=== PATIENT | female | born 1950 | race Caucasian/White ===

== ENCOUNTER 2018-07-18 13:40 | Outpatient (REF) | payer MEDICARE, OTHER, SELFPAY ==
[2018-07-18 20:44] LABS: Abs Immature Grans 0.01 k/cumm (0.0-0.09); Absolute Basophil Count 0.01 k/cumm (0.0-0.2); Absolute Eosinophil Count 0.04 k/cumm (0.0-0.7); Absolute Lymphocyte Count 0.97 k/cumm (1.2-3.4); Absolute Monocyte Count 0.66 k/cumm (0.11-0.7); Absolute Neutrophil Count 2.87 k/cumm (1.2-6.7); Basophils % 0.2; Eosinophils % 0.9; HCT 38.8 % (36.0-46.0); HGB 13.1 g/dL (12.0-15.5); Immature Grans % 0.2; Lymphocytes % 21.3; Mean Corp. HGB Concentration 33.8 g/dL (32.0-36.0); Mean Corpuscular Hemoglobin 33.9 pg (27.0-33.0); Mean Corpuscular Volume 100.5 fL (80-95); Mean Platelet Volume 10.1 fL (8.0-11.0); Monocytes % 14.5; Neutrophils % 62.9; Platelet Count 157 x1000/uL (130-400); RBC 3.86 m/cumm (4.00-5.20); RBC Distribution Width 12.7 % (11.7-14.6); White Blood Cell Count 4.56 k/cumm (4.4-10.8)
[2018-07-18 20:55] LABS: ALT 103 U/L (12-78); AST 126 U/L (15-37); Albumin 4.3 g/dL (3.4-5.0); Alkaline Phosphatase 71 U/L (46-116); Anion Gap 12.3 mmol/L (3-11); BUN 12 mg/dL (7-18); Bilirubin, Total 0.9 mg/dL (0.2-1.0); C-Reactive Protein 0.55 mg/dL (0.0-0.3); CO2 26.7 mmol/L (21.0-32.0); CREATININE 0.61 mg/dL (0.55-1.02); Calcium 9.9 mg/dL (8.5-10.1); Chloride 100 mmol/L (98-107); Glucose 117 mg/dL (70-100); Potassium 3.3 mmol/L (3.5-5.1); Sodium 139 mmol/L (136-145); Total Protein 7.4 g/dL (6.4-8.2)
[2018-07-19 13:17] LABS: Lipase 499 U/L (73-393)
[2018-07-20 13:12] LABS: GGT 96 U/L (5-55)
== END 2018-07-18 14:00 ==
LOC: NCHCN 13:40
PROVIDERS: PCP Family Medicine; Visit Provider Family Medicine
DX: R11.10 Vomiting, unspecified (principal); R13.10 Dysphagia, unspecified; R74.8 Abnormal levels of other serum enzymes
CPT/HCPCS: 80053; 83690; 82977; 85025; 86140

== ENCOUNTER 2018-08-09 03:39 | Outpatient (CLI) | payer MEDICARE, OTHER, SELFPAY ==
[2018-08-09] MEDS: Omnipaque 350 MG/ML 100 ML BTL IV (10:28)
[2018-08-09] MEDS: Breeza Beverage 473 ML BTL PO (10:32)
[2018-08-09] MEDS: Omnipaque 350 MG/ML 50 ML BTL PO (10:32)
--- NOTE | 2018-08-09 10:41 | DI.CT_ITS ---
SYMPTOMS/DIAGNOSIS: VOMITING, ACUTE DYSPHAGIA, R11.10, R13.10 CT OF THE CHEST, ABDOMEN AND PELVIS: The study was carried out with an intravenous injection of 100 cc's of Omnipaque 350 and oral ingestion of dilute contrast material. CHEST CT: The lungs are free of infiltrate. No mass is identified. There is a small pleural based calcification in the right upper lobe most likely representing an old healed granuloma. There is no pleural effusion. There is no hilar adenopathy. The heart is not enlarged. There is no evidence of pulmonary emboli. There are atherosclerotic changes involving the aorta without evidence of an aneurysm. ABDOMEN AND PELVIS CT: The with oral and intravenous contrast enhanced study reveals no abnormality involving the liver. The gallbladder is intact. There are no gallstones or ductal dilatation. The pancreas is normal. The spleen is normal. There are small nonobstructing calculi in the left kidney. The kidneys are otherwise unremarkable. The adrenals are normal. There is no evidence of bowel obstruction. There is nothing to suggest an acute appendix. Sigmoid diverticulosis is demonstrated and a few scattered diverticula are noted in the descending colon. There is no evidence of diverticulitis. The bladder is unremarkable. The reproductive organs as visualized appear intact. There is no evidence of free air or free fluid in the intraperitoneal space. There are atherosclerotic changes involving the aorta without evidence of an aneurysm. SUMMARY: No acute abnormality is defined. Note is made of nonobstructing left nephrolithiasis. There is evidence of diverticulosis without evidence of diverticulitis. There is no evidence of bowel obstruction or an acute appendix. If there is any further question regarding the possibility of a swallowing abnormality in this patient, then further assessment with a barium swallow could be obtained.
== END 2018-08-09 03:59 ==
PROVIDERS: PCP Family Medicine; Visit Provider Family Medicine
DX: R11.10 Vomiting, unspecified (principal); R13.10 Dysphagia, unspecified; N20.0 Calculus of kidney; K57.30 Diverticulosis of large intestine without perforation or abscess without bleeding
CPT/HCPCS: 74177; 71260; J3490; Q9967

== ENCOUNTER 2021-01-12 12:54 | Observation (INO) | payer MEDICARE, OTHER, SELFPAY ==
[2021-01-12] VITALS (41 sets, daily range): BP systolic 109–178; BP diastolic 65–109; PULSE 77–133; RESP 14–29; TEMP 36–36.2; O2SAT 91–100
--- NOTE | 2021-01-12 12:45 | RT.EKG_ITS ---
APPROVED REPORT Exam: Resting ECG Reason for Exam: possible hip Patient Location: E HR:126 bpm ECG Measurements Heart Rate 126 AXIS VA 141 P 80 QRSd 83 QRS 64 QT 312 T -75 QTc 452 Conclusion Sinus tachycardia...rate> 99 Repol abnrm suggests ischemia, inferior leads...ST dep, T neg, II III aVF
--- NOTE | 2021-01-12 13:00 | DI.RAD_ITS ---
Exam(s) XR HIP RT COMPLETE AP PELVIS EXAM: XR HIP RT COMPLETE AP PELVIS INDICATION: fall/pain. COMPARISON: CT CT CHEST/ABD/PEL W from 08/09/[address] CHEST/ABD/PEL W from 08/09/2018 TECHNIQUE: 2D digital imaging was performed. FINDINGS: Fractures of the right superior and inferior pubic rami. No proximal femoral fracture. AC joints an d pubic symphysis are not widened. Hip joint spaces are well maintained. The sacrum is mainly obscu red by stool and bowel gas. IMPRESSION: Mildly displaced right pubic ramus fractures. DATA REPOSITORY: RADIATION DOSE DELIVERED:
--- NOTE | 2021-01-12 13:00 | DI.RAD_ITS ---
Exam(s) XR CHEST 1V IN DI DEPT EXAM: XR CHEST 1V IN DI DEPT CLINICAL HISTORY: fall/tachy TECHNIQUE: 2D digital imaging was performed. COMPARISON: CR ABD FLAT UPRIGHT PA CHEST from 04/23/2016 FINDINGS: LUNGS: Clear. No pleural abnormality seen. HEART: Normal. MEDIASTINUM: Normal. BONES: Unremarkable. IMPRESSION: No acute pulmonary findings. DATA REPOSITORY: RADIATION DOSE DELIVERED:
[2021-01-12] MEDS: Normal Saline 1,000 ML 1000 ML IV (13:06)
--- NOTE | 2021-01-12 13:15 | DI.CT_ITS ---
Exam(s) CT HEAD WO EXAM: CT HEAD WO CLINICAL HISTORY: fall, head injury. TECHNIQUE: Imaging Protocol: Axial computed tomography images with coronal and sagittal reformatted images were created and reviewed COMPARISON: CT HEAD WITHOUT CONTRAST from 10/05/2017 FINDINGS: Ventricles and Extra axial spaces: Normal in size and morphology for the patient's age. Hemorrhage: None. Cerebral parenchyma: Moderate atrophy. Mild white matter changes small vessel disease. Midline shift: None. Brainstem/Cerebellum: Normal. Calvarium: Normal. Visualized Paranasal sinuses/Mastoids: Minimal mucous retention right maxillary sinus. Soft Tissues: Unremarkable. IMPRESSION: No acute intracranial process. RADIATION DOSE DELIVERED: 624.97mGy.cm Total DLP DATA REPOSITORY: All CT scans at this facility are submitted to the National Radiology Data Registry (NRDR) Dose Index Registry (DIR) with the [employer] (ACR). RADIATION OPTIMIZATION: All CT scans at this facility use at least one of these dose optimization te chniques: automated exposure control; mA and/or kV adjustment per patient size (includes targeted exa ms where dose is matched to clinical indication); or iterative reconstruction.
[2021-01-12 13:27] LABS: Bilirubin Small (Negative); Blood Trace-intact (Negative); Clarity Clear (Clear); Glucose Negative (Negative); Ketones >=160 mg/dL (Negative); Leukocyte Esterase Moderate (Negative); Nitrite Positive (Negative)
[2021-01-12 13:28] LABS: Abs Immature Grans 0.01 10^3/uL (0.0-0.06); Absolute Eosinophil Count 0.01 10^3/uL (0.0-0.7); Absolute Lymphocyte Count 0.65 10^3/uL (1.2-3.4); Absolute Monocyte Count 0.66 10^3/uL (0.1-0.8); Absolute Neutrophil Count 3.59 10^3/uL (1.2-6.7); Eosinophils % 0.2; HCT 39.2 % (36.0-46.0); HGB 13.3 g/dL (11.2-15.7); Immature Grans % 0.2; Lymphocytes % 13.2; MCH 33.2 pg (27.0-33.0); MCHC 33.9 % (32.0-36.0); MCV 97.8 fL (80-95); Monocytes % 13.4; Nucleated RBC 0 %; Platelet Count 136 10^3/uL (130-400); RBC 4.01 10^6/uL (3.93-5.22); RDW 11.5 % (11.7-14.6); RDW-SD 41.5 fL; WBC 4.92 10^3/uL (4.4-10.8)
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
[2021-01-12 13:42] LABS: Bacteria Many HPF (Negative); C & S Indicated? No/Sq. Contamination; Casts Negative LPF (Negative); Crystals Negative HPF (Negative); Epithelial Cells Many HPF (Negative); Mucus Negative (Negative); WBC >50 HPF (0-5)
[2021-01-12 13:52] LABS: Magnesium 1.9 mg/dL (1.8-2.4)
[2021-01-12 13:57] LABS: Creatine Kinase 163 U/L (26-192)
[2021-01-12 13:59] LABS: ALT 90 U/L (14-59); AST 119 U/L (15-37); Alkaline Phosphatase 105 U/L (46-116); Anion Gap 13.3 mmol/L (3-11); BUN 11 mg/dL (7-18); Bilirubin, Total 2.6 mg/dL (0.2-1.0); CO2 23.7 mmol/L (21.0-32.0); CREATININE 0.7 mg/dL (0.55-1.02); Calcium 9.4 mg/dL (8.5-10.1); Chloride 96 mmol/L (98-107); Glucose 173 mg/dL (74-106); Potassium 4.6 mmol/L (3.5-5.1); Sodium 133 mmol/L (136-145); Total Protein 6.9 g/dL (6.4-8.2)
[2021-01-12 14:04] LABS: ETHANOL BLOOD < 3.0 mg/dL (<3); Troponin I < 0.05 ng/mL (<0.06)
[2021-01-12 14:05] LABS: Source Nasal/Nares
--- NOTE | 2021-01-12 14:58 | DI.VRAD_ITS ---
PROCEDURE INFORMATION: Exam: CT Head Without Contrast Exam date and time: 01/12/2021 1:25 PM Age: 70 years old Clinical indication: Injury or trauma; Fall; Blunt trauma (contusions or hematomas) TECHNIQUE: Imaging protocol: Computed tomography of the head without contrast. Radiation optimization: All CT scans at this facility use at least one of these dose optimization techniques: automated exposure control; mA and/or kV adjustment per patient size (includes targeted exams where dose is matched to clinical indication); or iterative reconstruction. COMPARISON: CT HEAD WITHOUT CONTRAST 10/05/2017 7:48 PM FINDINGS: Brain: I see no evidence of acute hemorrhage or acute territorial infarct. Moderate diffuse involutional changes in the brain have advanced slightly since the previous. Mild white matter hypodensities again suggest small vessel disease. Cerebral ventricles: No ventriculomegaly. Paranasal sinuses: Visualized sinuses are unremarkable. No fluid levels. Mastoid air cells: Visualized mastoid air cells are well aerated. Bones/joints: Unremarkable. No acute fracture. Soft tissues: Unremarkable. IMPRESSION: No acute intracranial abnormality. Chronic appearing changes as above. Dictated and Authenticated by: Srinivasan Curtis MD. Ordering:MAAME Mcnair MD
--- NOTE | 2021-01-12 14:59 | DI.VRAD_ITS ---
PROCEDURE INFORMATION: Exam: XR Right Hip Exam date and time: 01/12/2021 1:15 PM Age: 70 years old Clinical indication: Injury or trauma; Fall; Blunt trauma (contusions or hematomas); Right; Hip TECHNIQUE: Imaging protocol: XR Right hip. Views: 2 or 3 views hip with pelvis when performed. COMPARISON: CT CHEST/ABD/PEL W 08/09/2018 10:09 AM FINDINGS: Bones/joints: Osteopenia and degenerative changes compatible with age. Fractures through the right superior and inferior pubic rami. No dislocation of the femoral head. Symmetric SI joints. Soft tissues: Unremarkable. IMPRESSION: Pelvic fractures. These would be better evaluated with CT scan. Dictated and Authenticated by: Srinivasan Curtis MD. Ordering:MAAME Mcnair MD
[2021-01-12] MEDS: MORPHine 4 MG/ML SYR IVP (15:00)
[2021-01-12] MEDS: Lactated Ringers 1,000 ML 1000 ML IV (15:00)
--- NOTE | 2021-01-12 15:01 | DI.VRAD_ITS ---
PROCEDURE INFORMATION: Exam: XR Chest Exam date and time: 01/12/2021 2:27 PM Age: 70 years old Clinical indication: Tachypnea; Patient HX: Fall/tachy TECHNIQUE: Imaging protocol: XR of the chest. Views: 1 view. COMPARISON: CT CHEST/ABD/PEL W 08/09/2018 10:09 AM FINDINGS: Lungs: No focal infiltrate. Punctate nodularity in the right upper lobe is stable. That can be followed appropriately. Pleural spaces: Unremarkable. No pleural effusion. No pneumothorax. Heart/Mediastinum: Stable cardiomediastinal silhouette. Bones/joints: Osteopenia and degenerative changes in the regional skeleton without acute fracture. IMPRESSION: Clear lungs. No displaced fracture. Dictated and Authenticated by: Srinivasan Curtis MD. Ordering:MAAME Mcnair MD
[2021-01-12] MEDS: Labetalol 100 MG/20 ML VIAL 10 MG IVP (15:33)
[2021-01-12] MEDS: cefTRIAXone 1 GM/50 ML BAG IVPB (15:34)
[2021-01-12 15:52] LABS: PTT Activated 23.2 sec (21.0-27.5); Prothrombin Time 10.2 sec (9.3-11.0)
[2021-01-12 16:33] LABS: COVID-19 PCR Negative (Negative)
--- NOTE | 2021-01-12 16:44 | W.PM.HP.N ---
Date of service: 01/12/21 Time of Service: 16:44 Assessment and Plan Assessment and plan (1) UTI (urinary tract infection): Status: Acute Assessment and plan: UA was contaminated, however, will get repeat cath specimen for culture and repeat UA. Patient given Rocephin 1 gm while in the ER. I will keep her on the same for now pending repeat urine culture and her blood culture results. Qualifiers: Urinary tract infection type: acute cystitis Hematuria presence: without hematuria Qualified Code(s): N30.00 - Acute cystitis without hematuria (2) Closed pelvic fracture: Status: Acute Assessment and plan: treat her pain w/ oral narcotics, parenteral NSAID (toradol) and prn iv narcotics and oral APAP. will consult P.T. tomorrow to try to mobilize her. Qualifiers: Encounter type: initial encounter Pelvic bone location: pubis Fracture alignment: displaced Laterality: right Qualified Code(s): S32.501A - Unspecified fracture of right pubis, initial encounter for closed fracture (3) Alcoholism /alcohol abuse: Status: Chronic Assessment and plan: patient claims to no longer have a problem w/ alcoholism but admits that she occasionally has a beer w/ her family. she claims to have had no acute withdrawal since her last admission in September 2017. I have ordered thiamine and MVS and will have nursing monitor her CIWA scores but did not order the alcohol withdrawal protocol for either phenobarbital nor benzodiazepines. Since she requires narcotics to control her pain I do not want to mix this w/ benzodiazepines if she truly is not going through any withdrawal. Furthermore w/ her elevated LFT's she should probably not receive phenobarbital. (4) Code status needs review: Status: Acute Assessment and plan: I discussed her code status w/ her including CPR, defibrillation/cardioversion, intubation and mechanical ventilation. She does not want intubation and mechanical ventilation nor does she want CPR nor defib/shocking in the event of cardiopulmonary arrest. I have placed a DNR/DNI order per her wishes. She does not have an advanced directive on file. She should make out COLST form. (5) Discharge planning issues: Status: Acute History of Present Illness History of Present Illness Chief Complaint: s/p fall 2d ago, unable to ambulate Narrative: 70 yr old female w/ PMH of alcoholism dating at least 50 years with prior episodes of alcoholic pancreatitis and major depressive disorder as well as chronic ataxia, COPD, alcoholic cardiomyopathy, essential hypertension, TIAs. Patient was last hospitalized @ [facility] for acute alcohol withdrawal in September 2017. She states that she no longer drinks as much as she formerly had. She will have one beer per week w/ her son. She has had no acute alcohol withdrawal episodes since 2018. On Tuesday night/early Tuesday morning, she got out of bed to go to the bathroom when she tripped over her cat and struck her right forehead on the bureau and landed on the floor on her right side. She denies loss of consciousness and had no antecedent CP or dyspnea. She craweled to the couch and laid there all of Tuesday and Tuesday but today called her friend Livier to have her brought to the hospital because she could not walk. On arrival to the ER she was found to be hypertensive () and tachycardic (HR ) and workup included CBC, CMP, UA, CT head and xrays of her hips/pelvis. CBC showed no anemia but mild macrocytosis and no leukocytosis. CMP demonstrated a transaminitis and elevated total bilirubin 2.9. She has a mild elevated AG of 13.9. UA was remarkable for ketones, nitrites, many bacteria and white cells but was also contaminated w/ many epis. CT head was unremarkable and xray of pelvis demonstrate right superior and inferior pubic rami fractures. CXR was unremarkable. Review of Systems All systems reviewed & are unremarkable except as noted in HPI and below PFSH Medical History (Updated 01/12/21 @ 17:55 by Xu Wagner) Acute alcoholic pancreatitis Alcohol withdrawal Alcoholic cardiomyopathy Alcoholism Fracture of left forearm Major depression, chronic TIA (transient ischemic attack) Surgical History (Updated 01/12/21 @ 17:41 by Xu Wagner) H/O uterine prolapse History of carpal tunnel release History of cystopexy History of umbilical hernia repair Family History (Updated 01/12/21 @ 17:43 by Xu Wagner) Brother Prostate cancer Father Alcohol use disorder Parkinsonism Mother Alcohol use disorder Sister Alcohol use disorder Social History Smoking/Tobacco Use Status: Former Tobacco Use Smoking risk assessment performed?: Yes Drug use: Never Substance use type: does not use Do you feel safe at home: Yes Do you feel safe in your relationship?: Yes Meds Allergies and Home Medications Allergies Allergy/AdvReac Type Severity Reaction Status Date / Time No Known Allergies Allergy Unverified 01/12/21 13:05 Home Medications Medication Instructions Recorded Confirmed Type Unknown [No Known Home Meds] 01/12/21 01/12/21 History Exam Narrative Exam Narrative: Thin cachectic appearing white female who is alert and oriented x 3 Lying in bed in semifowler position; not in acute distress and pain is controlled as long as she does not move HEENT: no upper teeth and lower teeth in poor repair, no exudate; normal facial mimetic muscles and normal speech; full EOMI; no nystagmus; VF grossly intact, no visible scalp wound Neck: supple, no JVD, no thyromegaly Lungs: clear Heart: RRR Abdomen: soft, nontender, scaphoid, normal bowel sounds; surgical scar over suprapubic area Hips/pelvis: tenderness w/ compression of right side of pubis; right trochanter nontender; Extremities: no edema or calf tenderness but right pelvis tender w/ any flexion or abduction of right leg. Neuro/psychiatric: alert/oriented to person/place/circumstances; no focal CN deficits and no focal motor deficits although RLE limited exam d/t pelvic fracture. Results Labs Result diagrams: 01/12/21 13:06 01/12/21 13:35 Labs: Laboratory Results - last 24 hr 01/12/21 01/12/21 01/12/21 13:06 13:06 13:06 WBC 4.92 RBC 4.01 Hgb 13.3 Hct 39.2 MCV 97.8 H MCH 33.2 H MCHC 33.9 RDW 11.5 L Plt Count 136 MPV 10.0 Immature Gran % 0.2 Neutrophils % 73.0 Lymphocytes % 13.2 Monocytes % 13.4 Eosinophils % 0.2 Basophils % 0.0 Nucleated RBC % 0 Absolute Neutrophils 3.59 Absolute Lymphocytes 0.65 L Absolute Monocytes 0.66 Absolute Eosinophils 0.01 Absolute Basophils 0.00 PT INR APTT Sodium Cancelled Potassium Cancelled Chloride Cancelled Carbon Dioxide Cancelled Anion Gap Cancelled BUN Cancelled Creatinine Cancelled Estimated GFR/1.73 m2 Cancelled Glucose Cancelled Calcium Cancelled Magnesium Cancelled Total Bilirubin Cancelled AST Cancelled ALT Cancelled Alkaline Phosphatase Cancelled Creatine Kinase Troponin I Cancelled Total Protein Cancelled Albumin Cancelled Urine Color Urine Clarity Urine pH Ur Specific [place] Urine Protein Urine Ketones Urine Blood Urine Nitrite Urine Bilirubin Urine Urobilinogen Ur Leukocyte Esterase Urine RBC Urine WBC Ur Epithelial Cells Urine Crystals Urine Bacteria Urine Casts Urine Mucus Ur Culture Indicated? Urine Glucose Ethyl Alcohol COVID-19 Source SARS-CoV-2 (PCR) 01/12/21 01/12/21 01/12/21 13:06 13:19 13:35 WBC RBC Hgb Hct MCV MCH MCHC RDW Plt Count MPV Immature Gran % Neutrophils % Lymphocytes % Monocytes % Eosinophils % Basophils % Nucleated RBC % Absolute Neutrophils Absolute Lymphocytes Absolute Monocytes Absolute Eosinophils Absolute Basophils PT INR APTT Sodium Potassium Chloride Carbon Dioxide Anion Gap BUN Creatinine Estimated GFR/1.73 m2 Glucose Calcium Magnesium Total Bilirubin AST ALT Alkaline Phosphatase Creatine Kinase 163 Troponin I Total Protein Albumin Urine Color Yellow Urine Clarity Clear Urine pH 6.0 Ur Specific [place] 1.010 Urine Protein Negative Urine Ketones >=160 H Urine Blood Trace-intact H Urine Nitrite Positive H Urine Bilirubin Small H Urine Urobilinogen 2.0 H Ur Leukocyte Esterase Moderate H Urine RBC 5-10 H Urine WBC >50 H Ur Epithelial Cells Many Urine Crystals Negative Urine Bacteria Many Urine Casts Negative Urine Mucus Negative Ur Culture Indicated? No/Sq. Contamination Urine Glucose Negative Ethyl Alcohol Cancelled COVID-19 Source SARS-CoV-2 (PCR) 01/12/21 01/12/21 01/12/21 13:35 13:35 13:35 WBC RBC Hgb Hct MCV MCH MCHC RDW Plt Count MPV Immature Gran % Neutrophils % Lymphocytes % Monocytes % Eosinophils % Basophils % Nucleated RBC % Absolute Neutrophils Absolute Lymphocytes Absolute Monocytes Absolute Eosinophils Absolute Basophils PT Cancelled INR Cancelled APTT Cancelled Sodium 133 L Potassium 4.6 Chloride 96 L Carbon Dioxide 23.7 Anion Gap 13.3 H BUN 11 Creatinine 0.7 Estimated GFR/1.73 m2 >= 60.00 Glucose 173 H Calcium 9.4 Magnesium 1.9 Total Bilirubin 2.6 H AST 119 H ALT 90 H Alkaline Phosphatase 105 Creatine Kinase Troponin I < 0.05 Total Protein 6.9 Albumin 3.0 L Urine Color Urine Clarity Urine pH Ur Specific [place] Urine Protein Urine Ketones Urine Blood Urine Nitrite Urine Bilirubin Urine Urobilinogen Ur Leukocyte Esterase Urine RBC Urine WBC Ur Epithelial Cells Urine Crystals Urine Bacteria Urine Casts Urine Mucus Ur Culture Indicated? Urine Glucose Ethyl Alcohol < 3.0 COVID-19 Source SARS-CoV-2 (PCR) 01/12/21 01/12/21 01/12/21 13:50 15:02 15:19 WBC RBC Hgb Hct MCV MCH MCHC RDW Plt Count MPV Immature Gran % Neutrophils % Lymphocytes % Monocytes % Eosinophils % Basophils % Nucleated RBC % Absolute Neutrophils Absolute Lymphocytes Absolute Monocytes Absolute Eosinophils Absolute Basophils PT 10.2 INR 1.0 APTT 23.2 Sodium Potassium Chloride Carbon Dioxide Anion Gap BUN Creatinine Estimated GFR/1.73 m2 Glucose Calcium Magnesium Total Bilirubin AST ALT Alkaline Phosphatase Creatine Kinase Troponin I Total Protein Albumin Urine Color Urine Clarity Urine pH Ur Specific [place] Urine Protein Urine Ketones Urine Blood Urine Nitrite Urine Bilirubin Urine Urobilinogen Ur Leukocyte Esterase Urine RBC Urine WBC Ur Epithelial Cells Urine Crystals Urine Bacteria Urine Casts Urine Mucus Ur Culture Indicated? Urine Glucose Ethyl Alcohol COVID-19 Source Nasal/Nares Cancelled SARS-CoV-2 (PCR) Negative Cancelled Last Vital Signs Temp 36.1 C L 01/12/21 12:55 Pulse 80 01/12/21 16:16 Resp 15 01/12/21 16:20 BP 109/65 01/12/21 16:16 Pulse Ox 100 01/12/21 16:20
[2021-01-12] MEDS: Acetaminophen 500 MG TAB 1000 MG PO ×2 (17:14→20:25)
[2021-01-12] MEDS: Ketorolac 15 MG/ML VIAL IVP (17:14)
[2021-01-12] MEDS: Enoxaparin 40 MG/0.4 ML SYR SC (17:32)
[2021-01-12] MEDS: Thiamine 100 MG TAB PO (17:33)
[2021-01-12 18:32] LABS: Lactate 1.6 mmol/L (0.6-1.4)
[2021-01-12 20:07] LABS: Procalcitonin 0.3 ng/mL
[2021-01-12] MEDS: Pantoprazole 40 MG TABCR PO (20:25)
[2021-01-12 21:12] LABS: Bilirubin Small (Negative); Blood Trace-intact (Negative); Clarity Cloudy (Clear); Glucose Negative (Negative); Ketones 15 mg/dL (Negative); Leukocyte Esterase Large (Negative); Nitrite Positive (Negative)
[2021-01-12 21:23] LABS: Bacteria Moderate HPF (Negative); Crystals Few Amorphous HPF (Negative); Epithelial Cells Few HPF (Negative); Other Cells Rare Renal (Negative); WBC >50 HPF (0-5)
[2021-01-12 21:24] LABS: C & S Indicated? Yes; Casts Negative LPF (Negative); Mucus Negative (Negative)
[2021-01-13] VITALS (9 sets, daily range): BP systolic 92–167; BP diastolic 60–83; PULSE 71–84; RESP 16–18; TEMP 35.9–36.7; O2SAT 99–100
[2021-01-13] MEDS: Ketorolac 15 MG/ML VIAL IVP ×4 (00:43→16:53)
[2021-01-13] MEDS: Lactated Ringers 1,000 ML 100 ML IV ×2 (03:19→14:31)
[2021-01-13 06:50] LABS: Abs Immature Grans 0.01 10^3/uL (0.0-0.06); Absolute Basophil Count 0.01 10^3/uL (0.0-0.2); Absolute Eosinophil Count 0.09 10^3/uL (0.0-0.7); Absolute Lymphocyte Count 0.92 10^3/uL (1.2-3.4); Absolute Monocyte Count 0.46 10^3/uL (0.1-0.8); Absolute Neutrophil Count 1.44 10^3/uL (1.2-6.7); Basophils % 0.3; Eosinophils % 3.1; HCT 32.8 % (36.0-46.0); Immature Grans % 0.3; Lymphocytes % 31.4; MCH 33.3 pg (27.0-33.0); MCHC 33.5 % (32.0-36.0); MCV 99.4 fL (80-95); MPV 9.8 fL (8.0-11.0); Monocytes % 15.7; Neutrophils % 49.2; Nucleated RBC 0 %; Platelet Count 104 10^3/uL (130-400); RDW 11.5 % (11.7-14.6); RDW-SD 42.1 fL; WBC 2.93 10^3/uL (4.4-10.8)
[2021-01-13 07:01] LABS: Magnesium 1.6 mg/dL (1.8-2.4)
[2021-01-13 07:14] LABS: ALT 65 U/L (14-59); AST 66 U/L (15-37); Albumin 2.5 g/dL (3.4-5.0); Alkaline Phosphatase 80 U/L (46-116); Anion Gap 6.7 mmol/L (3-11); BUN 9 mg/dL (7-18); Bilirubin, Total 1.5 mg/dL (0.2-1.0); CO2 29.3 mmol/L (21.0-32.0); CREATININE 0.7 mg/dL (0.55-1.02); Calcium 8.8 mg/dL (8.5-10.1); Chloride 101 mmol/L (98-107); Glucose 133 mg/dL (74-106); Potassium 3.4 mmol/L (3.5-5.1); Sodium 137 mmol/L (136-145); TSH (W/Ref FT4) 1.41 uIU/mL (0.36-3.74); Total Protein 5.2 g/dL (6.4-8.2)
[2021-01-13] MEDS: Acetaminophen 500 MG TAB 1000 MG PO ×2 (07:52→14:19)
[2021-01-13] MEDS: Multivitamin TAB 1 TAB PO (07:53)
[2021-01-13] MEDS: Thiamine 100 MG TAB PO (07:53)
[2021-01-13] MEDS: Pantoprazole 40 MG TABCR PO ×2 (07:53→19:29)
[2021-01-13] MEDS: Normal Saline Flush 10 ML SYR (10:55)
--- NOTE | 2021-01-13 11:02 | INITIAL_ITS ---
- If Service Date Differs Date of service: 01/13/21 Time of Service: 11:02 Care Management Initial Assess REASON FOR HOSPITALIZATION:: 70 year old female admitted to [facility] on for Right Public Rami Fracture, UTI PAST MEDICAL HISTORY/PAST SURGICAL HISTORY:: Medical History (Updated 01/12/21 @ 17:55 by Xu Wagner). Acute alcoholic pancreatitis. Alcohol withdrawal. Alcoholic cardiomyopathy. Alcoholism. Fracture of left forearm. Major depres nolan, chronic. TIA (transient ischemic attack). Surgical History (Updated 01/12/21 @ 17:41 by Xu Wagner). H/O uterine prolapse. History of carpal tunnel release. History of cystopexy. History of umbilical hernia repair PREVIOUS FUNCTIONAL STATUS/SOCIAL/FAMILY SUPPORTS:: Keturah is a who lives alone in [place]. She has 4 adult children (2 in [place], [address] [place]) who are all supportive to her. Keturah is independent in her ADL's at baseline. CURRENT FUNCTIONAL STATUS:: Keturah was sitting up in her chair when CM met with her. She was alert and oriented X 3 and easily engaged in conversation. Keturah shares that she would like to go to a SNF prior to going home to work on mobility and ambulating to the bathroom. CM continues to support placement planning. ADVANCE DIRECTIVES:: None on file, CM gave patient a blank copy Has patient been provided with info about the portal/API?: Yes Did the patient sign up for the portal?: No CODE STATUS:: DNR/DNI INSURANCE COVERAGE / FINANCIAL ISSUES:: [employer]. BS. Medicare/C&S Adminis ser C CURRENT HOME/COMMUNITY SERVICES/EQUIPMENT:: Patient does not use a walker or cane, but has both at home. PRIMARY CARE PHYSICIAN:: Mary Barker PATIENT/FAMILY EDUCATION NEEDS:: Discharge instructions and plan to follow up with community providers, ask me three. TRANSPORTATION:: Transportation to be determined by disposition: SNF facility van vs. private transportation with family. CM will continue to support. PLAN:: Disposition is undetermined at this time. It is possible that Keturah will benefit from a SNF placement prior to returning home to regain mobility. CM continues to support discharge planning.
--- NOTE | 2021-01-13 11:13 | IN_ITS ---
Date of service: 01/13/21 Time of Service: 11:13 PT Notes Visit Reasons: Right Public Rami FRX,UTI Physical Therapy Inpatient Initial Evaluation Date: 01/13/2021 Referring Doctor: Xu Wagner MD PT Orders: PT CONSULT: Limited ability Precautions: Fall. Standard. WBAT on right LE. Patient Profile/Admitting Diagnosis: Keturah is a 70-year-old female who presented to the ED on 01/12/2021 due to a mechanical fall on Tuesday evening (2 days prior to admission). Patient is diagnosed with urinary tract infection, post pelvic fracture, and EtOH abuse. PMHX: Medical History (Updated 01/12/21 @ 17:55 by Xu Wagner) Acute alcoholic pancreatitis Alcohol withdrawal Alcoholic cardiomyopathy Alcoholism Fracture of left forearm Major depression, chronic TIA (transient ischemic attack) Surgical History (Updated 01/12/21 @ 17:41 by Xu Wagner) H/O uterine prolapse History of carpal tunnel release History of cystopexy History of umbilical hernia repair Social History/Home Situation: Lives alone in a private home with 4 steps to enter with rails on both sides. Independent with all aspects of ADLs prior to admission without the need for an assistive ambulatory device. Has worked as a legal stenographer for several years. Equipment Owned/DME: None Subjective: Keturah indicates that she has had some kind of infection that caused her to get weaker which resulted to the fall that she had 2 days prior to admission. Today she indicates feeling weak, unstable, and fearful of falling. She reports pain in the right hip and pelvis at 5/10. Objective: General Observation: Cachexic. Wan catheter in place. Appeared mildly anxious about moving the first time today. Mental Status: Alert and oriented as to person, place, time, and purpose. Able to pay attention, focus, and respond appropriately. Pain: 5/10 in right hip and pelvis ROM: Right Upper Extremity: Shoulder Flexion WFL. Shoulder abduction WFL. Elbow flexion WFL. Wrist flexion WFL. Functional opening and closing of hand WFL. Left Upper Extremity: Shoulder Flexion WFL. Shoulder abduction WFL. Elbow flexion WFL. Wrist flexion WFL. Functional opening and closing of hand WFL. Right Lower Extremity: Hip flexion bend further at the hip while at edge of bed due to pain level. Hip abduction-- able to slide R LE slowly to the edge of bed but with report of pain. Knee flexion WFL. Ankle dorsiflexion to neutral only. Ankle plantarflexion WFL. Left Lower Extremity: Hip flexion WFL. Hip abduction WFL. Knee flexion WFL. Ankle dorsiflexion WFL. Ankle plantarflexion WFL. Strength: Right Upper Extremity: Shoulder flexors 3/5. Shoulder abductors 3/5. Elbow flexors 3/5. Elbow extensors 3/5. Non Destructive Testing Technician strong. Left Upper Extremity: Shoulder flexors 3/5. Shoulder abductors 3/5. Elbow flexors 3/5. Elbow extensors 3/5. Non Destructive Testing Technician strong. Right Lower Extremity: Hip flexors 3-/5. Hip abductors 3-/5. Knee flexors 4-/5. Knee extensors 3-/5. Ankle dorsiflexors 3-/5. Ankle plantarflexors 4-/5. Left Lower Extremity: Hip flexors 4-/5. Hip abductors 4-/5. Knee flexors 4-/5. Knee extensors 4-/5. Ankle dorsiflexors 4-/5. Ankle plantarflexors 4-/5. Bed Mobility/Transfers: Supine to sit with hand-held assist to patient's right hand Sit to stand with minimal assist Stand to sit with contact-guard assist Bed to reclining chair minimal assist Gait: Instructed patient with level surface ambulation of 20 feet requiring contact-guard assist assist and wheelchair follow of MARTHA Vidal. Christiana decreased. Step height decreased. Step length decreased. Complained of being shaky, weak, and unstable. Stated that she will go farther later today as she wants to take it easy. Balance: Static Sitting: Normal Dynamic Sitting: Good Static Standing: Fair Dynamic Standing: Fair Special Tests: Mobility Limitations Standardized Measure [facility] AM-PAC 6 clicks Basic Mobility Inpatient Short Form: Raw Score: 18 CMS Score: 47% deficit Informed Consent/Education: Patient was instructed in purpose of PT consult and plan of care. Agreeable to proceed with established PT POC to achieve personal goals. Assessment: Keturah demonstrates significant functional mobility requiring the use of a front wheeled walker for mobility performance for safety. Patient presents with clinical signs and symptoms consistent with current/admitting diagnoses that have resulted to mobility limitations, gait instability, generalized weakness, and overall ADL decline as demonstrated by the following impairment level findings: 1. Decreased strength to right LE major muscle groups 2. Impaired standing balance 3. Impaired activity tolerance 4. Limitation of joint range of motion in right hip 5. Shortness of breath 6. Pain in right hip and pelvis Impairments are contributing to the following functional limitations: 1. Decline in bed mobility skills 2. Decline in transfer skills 3. Difficulty with ambulation without assistive device and physical assistance 4. Increased completion time for mobility ADL performance 5. Increased risk for falls 6. Difficulty with managing steps alone safely Patient is assessed as a [id number] moderate complexity based on the following: History: 70-year-old female with past medical history as indicated above Examination: Demonstrable impairment in strength, balance, and mobility level with underlying impairments and functional limitations as exhibited above as well as deficit score of 47% utilizing the [facility] Mobility Inpatient Short Form Presentation: Evolving Decision Makin 0599 moderate complexity Goals: Goals X1 week 1. Supine-Sit independent 2. Sit-Supine independent 3. Sit-Stand independent 4. Stand-Sit independent with front wheel walker 5. Bed-Chair independent with front wheeled walker 6. Chair-Bed independent with front wheeled walker 7. Independent gait on level surface with use of front wheel walker 500 for at least feet without report of pain nor dyspnea 8. Independent stair negotiation while holding onto B rails for at least 4 steps without report of pain nor dyspnea 9. Independent with home exercise program 10. Good static and dynamic standing balance/tolerance Plan of Care/Treatment Plan: 1-2x/day, 7 days/week x 1 week. Plan of care has been reviewed with the SPIRAL BINDER providing the service under Physical Therapy direction. Initiate Physical Therapy intervention for pain management as needed, strengthening, bed mobility, transfers, gait, stairs, balance training, and use of assistive device. DISCHARGE RECOMMENDATIONS: SNF versus home health PT TREATMENT CODE/TIME: 20727 x 20 minutes, 88908 x 60 minutes beginning at 11:13 AM. Thank you for the opportunity to participate in the care of this patient. Marjorie Duckworth PT, DPT, CLT [facility] [place], [place]
--- NOTE | 2021-01-13 14:53 | W.PM.PROGNOT ---
Date of Service Date of service: 01/13/21 Time of Service: 14:53 Assessment and Plan Assessment and plan (1) Closed pelvic fracture: Status: Acute Assessment and plan: pain improving w/ tylenol and tramadol and toradol. cont. w/ P.T. ambulation. Hopefully home tomorrow w/ home health including nursing and P.T. Qualifiers: Encounter type: initial encounter Pelvic bone location: pubis Fracture alignment: displaced Laterality: right Qualified Code(s): S32.501A - Unspecified fracture of right pubis, initial encounter for closed fracture (2) UTI (urinary tract infection): Status: Acute Assessment and plan: blood and urine cultures are still pending from yesterday. Will maintain Rocephin for another day. If blood cultures are negative then can switch to oral antibiotics and dc home tomorrow. Qualifiers: Urinary tract infection type: acute cystitis Hematuria presence: without hematuria Qualified Code(s): N30.00 - Acute cystitis without hematuria (3) Alcoholism /alcohol abuse: Status: Chronic Assessment and plan: no sign of acute alcohol withdrawal. cont. to monitor. (4) Discharge planning issues: Status: Acute Assessment and plan: hopefully dc tomorrow w/ home health services including nursing and P.T. Subjective Subjective Interval history since last seen: Patient states that her pain is improved. She got up and walked w/ assistance and FWW for P.T. Her urine looks dark and concentrated. She has been encouraged to drink more fluids and to eat. Her appetite is off. I will have nursing remove her carranza catheter to enable her to be more mobile (also will stop tele as she had no arrhythmia, rhythm has been SR). patient has shown no signs of alcohol withdrawal. CIWA has been zero. Exam Narrative Exam Narrative: Alert/ oriented x 3 Lungs: clear Heart: RRR Abdomen: soft, nontender, nondistended, normal bowel sounds Pubic rami: belt tender on the right Extremities: no edema Objective Last Vital Signs Temp 36.6 C 01/13/21 13:04 Pulse 84 01/13/21 13:04 Resp 16 01/13/21 13:04 BP 92/60 L 01/13/21 13:04 Pulse Ox 100 01/13/21 13:04 Laboratory Results - last 24 hr 01/12/21 01/12/21 01/12/21 13:50 15:02 15:19 WBC RBC Hgb Hct MCV MCH MCHC RDW Plt Count MPV Immature Gran % Neutrophils % Lymphocytes % Monocytes % Eosinophils % Basophils % Nucleated RBC % Absolute Neutrophils Absolute Lymphocytes Absolute Monocytes Absolute Eosinophils Absolute Basophils PT 10.2 INR 1.0 APTT 23.2 VBG Lactate Sodium Potassium Chloride Carbon Dioxide Anion Gap BUN Creatinine Estimated GFR/1.73 m2 Glucose Calcium Magnesium Total Bilirubin AST ALT Alkaline Phosphatase Total Protein Albumin Procalcitonin TSH Urine Color Urine Clarity Urine pH Ur Specific [place] Urine Protein Urine Ketones Urine Blood Urine Nitrite Urine Bilirubin Urine Urobilinogen Ur Leukocyte Esterase Urine RBC Urine WBC Ur Epithelial Cells Urine Crystals Urine Bacteria Urine Casts Urine Mucus Urine Other Ur Culture Indicated? Urine Glucose COVID-19 Source Cancelled SARS-CoV-2 (PCR) Negative Cancelled 01/12/21 01/12/21 01/12/21 18:16 18:16 20:30 WBC RBC Hgb Hct MCV MCH MCHC RDW Plt Count MPV Immature Gran % Neutrophils % Lymphocytes % Monocytes % Eosinophils % Basophils % Nucleated RBC % Absolute Neutrophils Absolute Lymphocytes Absolute Monocytes Absolute Eosinophils Absolute Basophils PT INR APTT VBG Lactate 1.6 H Sodium Potassium Chloride Carbon Dioxide Anion Gap BUN Creatinine Estimated GFR/1.73 m2 Glucose Calcium Magnesium Total Bilirubin AST ALT Alkaline Phosphatase Total Protein Albumin Procalcitonin 0.3 TSH Urine Color [place] Urine Clarity Cloudy Urine pH 5.0 Ur Specific [place] 1.010 Urine Protein Trace H Urine Ketones 15 H Urine Blood Trace-intact H Urine Nitrite Positive H Urine Bilirubin Small H Urine Urobilinogen 4.0 H Ur Leukocyte Esterase Large H Urine RBC 5-10 H Urine WBC >50 H Ur Epithelial Cells Few Urine Crystals Few Amorphous Urine Bacteria Moderate Urine Casts Negative Urine Mucus Negative Urine Other Rare Renal Ur Culture Indicated? Yes Urine Glucose Negative COVID-19 Source SARS-CoV-2 (PCR) 01/13/21 01/13/21 01/13/21 06:25 06:25 06:25 WBC 2.93 L D RBC 3.30 L Hgb 11.0 L D Hct 32.8 L MCV 99.4 H MCH 33.3 H MCHC 33.5 RDW 11.5 L Plt Count 104 L MPV 9.8 Immature Gran % 0.3 Neutrophils % 49.2 Lymphocytes % 31.4 Monocytes % 15.7 Eosinophils % 3.1 Basophils % 0.3 Nucleated RBC % 0 Absolute Neutrophils 1.44 Absolute Lymphocytes 0.92 L Absolute Monocytes 0.46 Absolute Eosinophils 0.09 Absolute Basophils 0.01 PT INR APTT VBG Lactate Sodium 137 Potassium 3.4 L D Chloride 101 Carbon Dioxide 29.3 Anion Gap 6.7 BUN 9 Creatinine 0.7 Estimated GFR/1.73 m2 >= 60.00 Glucose 133 H Calcium 8.8 Magnesium 1.6 L Total Bilirubin 1.5 H AST 66 H ALT 65 H Alkaline Phosphatase 80 Total Protein 5.2 L Albumin 2.5 L Procalcitonin TSH 1.41 Urine Color Urine Clarity Urine pH Ur Specific [place] Urine Protein Urine Ketones Urine Blood Urine Nitrite Urine Bilirubin Urine Urobilinogen Ur Leukocyte Esterase Urine RBC Urine WBC Ur Epithelial Cells Urine Crystals Urine Bacteria Urine Casts Urine Mucus Urine Other Ur Culture Indicated? Urine Glucose COVID-19 Source SARS-CoV-2 (PCR)
[2021-01-13] MEDS: cefTRIAXone 1,000 MG in Normal Saline 50 ML 100 MG IVPB (15:15)
[2021-01-13] MEDS: Normal Saline 500 ML 100 ML IV (15:15)
[2021-01-13] MEDS: MAGNESIUM SULFATE 2 GM/50 ML BAG IVPB (15:41)
[2021-01-13] MEDS: Potassium Chloride 20 MEQ TABCR PO ×2 (15:41→19:29)
--- NOTE | 2021-01-13 15:49 | PT.INTREAT ---
Date of service: 01/13/21 Time of Service: 13:20 PT Notes Visit Reasons: Right Public Rami FRX,UTI Inpatient Physical Therapy Treatment Note [facility] Date: 01/13/2021 PRECAUTIONS: Fall, WBAT R SUBJECTIVE: Keturah in pleasant and agreeable to participating in PT. She states that she has a fear of falling during ambulation. She reports that she has a high pain threshold and really wants to go home, so she is willing to work hard with PT to remain mobile. OBJECTIVE: PAIN: Patient complained of R groin and LE pain with gait training and ther ex. BED MOBILITY/TRANSFERS Supine-sit: I with HOB at 30 degrees Sit-stand: SBA Stand-sit: SBA GAIT Assistive Device: FWW Weight bearing: WBAT R Assist: CGA - SBA Distance: ~80' Deviation: Wheelchair follow to reduce anxiety THEREX: Patient was instructed in a LE strengthening program, completed in a seated position, as per flow sheet. She c/o R groin and LE pain with hip flexion and hip abduction exercises. STAIRS: Refused ASSESSMENT: Patient tolerated session with complaint of increased right sided groin and LE pain with gait training and ther ex. She was able to tolerate a progression in gait distance with FWW support and CGA-SBA. PLAN: Continue with gait and transfer training and global strengthening for continued progression toward baseline level of function. TREATMENT CODE/TIME: 25 minutes; 22112, 76716 (13:20)
[2021-01-13] MEDS: Normal Saline Flush 10 ML SYR IVP ×2 (16:55→22:59)
--- NOTE | 2021-01-13 17:00 | NUR.NOTE ---
Nursing Note: At 1650 on 01/13/21, RN entered pt.'s room to answer the pt.'s call stark and administer a scheduled pain medication. Pt. was noted to be on the phone with her daughter and stated, My daughter would like the doctor's phone number so she can call them to talk about my discharge plan for tomorrow. RN informed the pt. that the MD's phone number doesn't get handed out to pts., but that they would let the charge nurse know to let the MD know that the pt.'s daughter would like a phone call. Charge nurse was immediately notified of pt.'s request. Charge nurse then immediately paged the MD to let them know of the pt.'s request to have the MD call the pt.'s daughter. RN will reassess as necessary.
[2021-01-13] MEDS: Enoxaparin 40 MG/0.4 ML SYR SC (17:28)
--- NOTE | 2021-01-13 17:57 | CHAPLAIN ---
Not long into our conversation, Keturah asked me if I knew Katja Madden (?) I said I wasn't sure. She said Katja is her sister and was flown by [facility] from here to [facility] [facility] in December and there about a week later. From what Keturah described, it sounds like her sister was intubated. Keturah, her brother, and Katja's were able to see Katja before she , but she was not responsive at the time, Keturah said. We talked about what the of her sister has meant to her. When her STATION SUPERINTENDENT arrived for vitals, Keturah thanked me for talking with her about her sister, and then moved on to talking with the STATION SUPERINTENDENT.
[2021-01-13] MEDS: Magnesium Oxide 400 MG TAB PO (19:29)
[2021-01-14 03:47] VITALS: BP 101/61; PULSE 77; RESP 16; TEMP 36.3; O2SAT 99
[2021-01-14] MEDS: traMADol 50 MG TAB 100 MG PO ×2 (06:08→14:00)
[2021-01-14 06:41] LABS: Abs Immature Grans 0.01 10^3/uL (0.0-0.06); Absolute Basophil Count 0.01 10^3/uL (0.0-0.2); Absolute Eosinophil Count 0.03 10^3/uL (0.0-0.7); Absolute Lymphocyte Count 0.76 10^3/uL (1.2-3.4); Absolute Monocyte Count 0.58 10^3/uL (0.1-0.8); Basophils % 0.3; Eosinophils % 0.9; Immature Grans % 0.3; Lymphocytes % 22.4; MCH 32.6 pg (27.0-33.0); MCHC 33.3 % (32.0-36.0); MCV 97.9 fL (80-95); MPV 9.7 fL (8.0-11.0); Monocytes % 17.1; Nucleated RBC 0 %; Platelet Count 141 10^3/uL (130-400); RBC 3.37 10^6/uL (3.93-5.22); RDW 11.4 % (11.7-14.6); RDW-SD 41.1 fL; WBC 3.39 10^3/uL (4.4-10.8)
[2021-01-14 06:56] LABS: Magnesium 1.9 mg/dL (1.8-2.4)
[2021-01-14 06:58] LABS: Anion Gap 5.7 mmol/L (3-11); BUN 6 mg/dL (7-18); CO2 28.3 mmol/L (21.0-32.0); CREATININE 0.6 mg/dL (0.55-1.02); Calcium 8.9 mg/dL (8.5-10.1); Chloride 104 mmol/L (98-107); Glucose 122 mg/dL (74-106); Sodium 138 mmol/L (136-145)
[2021-01-14 07:50] LABS: Ferritin 1307 ng/mL (8-252)
[2021-01-14 08:00] LABS: Iron 57 ug/dL (50-170); Total Iron Binding Capacity 137 ug/dL (250-450); Transferrin Sat 42 % (15-50)
[2021-01-14] MEDS: Thiamine 100 MG TAB PO (08:17)
[2021-01-14] MEDS: Pantoprazole 40 MG TABCR PO (08:17)
[2021-01-14] MEDS: Magnesium Oxide 400 MG TAB PO (08:17)
[2021-01-14] MEDS: Multivitamin TAB 1 TAB PO (08:17)
[2021-01-14 08:18] VITALS: BP 114/80; PULSE 93; RESP 17; TEMP 36.6; O2SAT 100
--- NOTE | 2021-01-14 10:41 | W.PM.DS.N ---
Date of service: 01/14/21 Time of Service: 10:41 DS: Diagnosis Discharge Diagnosis (1) Closed pelvic fracture: Status: Acute (2) UTI (urinary tract infection): Status: Acute (3) Alcoholism /alcohol abuse: Status: Chronic Discharge Plan Disposition Patient Disposition: HOME W/HOME HEALTH SERVICE Condition: Stable Discharge Details Reason For Visit: Right Public Rami FRX,UTI Admit Date/Time: 01/12/21 15:11 Admit Provider: Xu Wagner Attending Provider: Xu Wagner Primary Care Provider: Mary Barker V Hospital Course Hospital Course: This is a 70 year old female with past medical history only of alcohol abuse who reports she has not been drinking regularly, who presented to the ED after a fall at home. Work up in the ED shows pelvic fracture. she was started on ceftriaxone for UTI and referred for observation. she was working with physical therapy and was only a stand by assist. Her pain was managed on oral pain medication. She was eating and drinking and hemodynamically stable with no fevers. she denied any new urinary symptoms, reported chronic urinary incontinence, which is unchanged. case management has been following and plan is to discharge to home with home health services. She will complete 5 more days of keflex to complete a 7 day course. she will be provided prescription for tramadol for severe breakthrough pain. discharge discussed with DR Wagner. Home Meds and New Rx's Prescriptions: New Acetaminophen [Tylenol] 1,000 mg PO TID Qty: 0 RF: 0 tramadol 50 mg Tablet 100 mg PO Q6H PRN PRNQty: 20 RF: 0 ibuprofen 600 mg tablet 600 mg PO Q6H PRNQty: 30 RF: 0 cephalexin 500 mg capsule 500 mg PO BID Qty: 10 RF: 0 Discharge Instructions Instructions: Urinary Tract Infection in Women (DC), Pelvic Fracture (DC) Stand Alone Forms: Nursing Discharge Form Referrals: Mary Braker MD [Primary Care Provider] - 01/26/21 8:45 am Activity:: Activity as Tolerated Equipment/Supplies:: No Equipment Needed Diet:: As Tolerated DS: Summary Time Spent with Patient providing and/or coordinating discharge services: Greater than 30 minutes Status at Discharge Functional status at discharge: uses cane/walker Overall status at discharge: patient is progressing back to baseline Mental Status: mental status grossly normal Speech and Movement: speech and movement normal Mood: congruent mood Affect: normal affect Exam Const General: cooperative and ill appearing chronically Nutritional Appearance: thin Orientation: alert and awake HENMT Head: normal to inspection, normocephalic and atraumatic Mouth: moist mucous membranes abnormal (Slightly dry) Eyes General: appearance normal, both eyes and all related structures Conjunctivae: conjunctivae normal Neck Neck: normal visual inspection, supple and nontender Resp Effort & Inspection: normal respiratory effort and able to speak in complete sentences Auscultation: diminished lung sounds bilaterally in the lower lung rivero Cardio Rhythm: regular rhythm GI Palpation: soft, not firm, no guarding, no pulsatile masses and nontender Auscultation: normal bowel sounds Back/Spine/Pelvis Back: No back tenderness Skin General skin exam: no rashes or lesions noted Neuro General: patient alert, patient awake, patient oriented x3, moves all extremities and no focal motor deficits Cognition: normal cognition Speech: speech normal Motor: muscle tone normal throughout and strength 5/5 throughout Sensory Exam: no sensory deficits noted Extrem General: capillary refill normal Psych Appearance: grossly normal Mental Status: mental status grossly normal Speech and Movement: speech and movement normal Mood: congruent mood Affect: normal affect DS: Data Vitals/I&O Vitals and I&O: Vital Signs Temperature 36.6 C 01/14/21 08:18 Temperature Source Tympanic 01/14/21 08:18 Pulse 93 H 01/14/21 08:18 Pulse Rhythm Regular 01/14/21 08:30 Pulse 80 01/12/21 16:20 Respiratory Rate 17 01/14/21 08:18 Respiratory Effort Non-Labored 01/14/21 08:30 Respiratory Depth Normal 01/14/21 08:30 Respiratory Pattern Normal 01/14/21 08:30 Blood Pressure 114/80 01/14/21 08:18 Blood Pressure Mean 76 01/12/21 16:16 Blood Pressure Position Supine 01/12/21 12:55 Pulse Oximetry 100 01/14/21 08:18 Oxygen Delivery Method Room Air 01/14/21 08:18 Oxygen Flow Rate 0 01/14/21 08:18 Pain Level 4 01/14/21 09:34 Comment 01/13/21 20:30 Intake & Output 01/13/21 01/13/21 01/14/21 11:59 23:59 11:59 Intake Total 380 / 3380.000 3000.000 / 3380.000 351.667 / 351.667 Output Total 475 / 1725 1250 / 1725 500 / 500 Balance -95 / 3228.161 5816.000 / 1655.000 -148.333 / -148.333 Weight 48.988 kg Intake: IV 19294403.107 0944.000 / 1930.000 241.667 / 241.667 Oral 360 / 1450 1090 / 1450 110 / 110 Output: Urine 475 / 1725 1250 / 1725 400 / 400 Emesis 100 / 100 Other: Urine Color Brown Yellow Yellow Urine Appearance Cloudy Clear Clear Urine Odor Normal Comment Pt encouraged to increase PO intake. no hat in toilet, CONTROL ROOM SUPERVISOR reports long void Stool Size Small Moderate Stool Characteristics Soft Soft Brown Formed Voiding Methods Bedside Commode Bedside Commode Data Completed and Pending Labs on day of discharge: Labs from last 24 hours 01/14/21 01/14/21 01/14/21 06:18 06:18 06:18 WBC 3.39 L RBC 3.37 L Hgb 11.0 L Hct 33.0 L MCV 97.9 H MCH 32.6 MCHC 33.3 RDW 11.4 L Plt Count 141 MPV 9.7 Immature Gran % 0.3 Neutrophils % 59.0 Lymphocytes % 22.4 Monocytes % 17.1 Eosinophils % 0.9 Basophils % 0.3 Nucleated RBC % 0 Absolute Neutrophils 2.00 Absolute Lymphocytes 0.76 L Absolute Monocytes 0.58 Absolute Eosinophils 0.03 Absolute Basophils 0.01 Sodium Potassium Chloride Carbon Dioxide Anion Gap BUN Creatinine Estimated GFR/1.73 m2 Glucose Calcium Magnesium 1.9 Iron 57 TIBC 137 L Transferrin % Sat 42 Ferritin 01/14/21 06:18 WBC RBC Hgb Hct MCV MCH MCHC RDW Plt Count MPV Immature Gran % Neutrophils % Lymphocytes % Monocytes % Eosinophils % Basophils % Nucleated RBC % Absolute Neutrophils Absolute Lymphocytes Absolute Monocytes Absolute Eosinophils Absolute Basophils Sodium 138 Potassium 4.0 Chloride 104 Carbon Dioxide 28.3 Anion Gap 5.7 BUN 6 L Creatinine 0.6 Estimated GFR/1.73 m2 >= 60.00 Glucose 122 H Calcium 8.9 Magnesium Iron TIBC Transferrin % Sat Ferritin 1307 H Preliminary micro results at discharge 01/12/21 20:30 Urine Culture - Preliminary Urine - Reflex from Ua Escherichia coli Gram Negative Shimon Gram Positive No,Mixed 01/12/21 15:12 Blood Culture - Preliminary Blood NO GROWTH 24 HOURS 01/12/21 15:02 Blood Culture - Preliminary Blood NO GROWTH 24 HOURS [facility] Medical History (Updated 01/13/21 @ 15:07 by Xu Wagner) Acute alcoholic pancreatitis Alcohol withdrawal Alcoholic cardiomyopathy Alcoholism Fracture of left forearm Major depression, chronic TIA (transient ischemic attack) Surgical History (Updated 01/12/21 @ 17:41 by Xu Wagner) H/O uterine prolapse History of carpal tunnel release History of cystopexy History of umbilical hernia repair Family History (Updated 01/12/21 @ 17:43 by Xu Wagner) Brother Prostate cancer Father Alcohol use disorder Parkinsonism Mother Alcohol use disorder Sister Alcohol use disorder Social History Smoking/Tobacco Use Status: Former Tobacco Use Smoking risk assessment performed?: Yes Drug use: Never Substance use type: does not use Do you feel safe at home: Yes Do you feel safe in your relationship?: Yes
--- NOTE | 2021-01-14 12:35 | PT.INTREAT ---
Date of service: 01/14/21 Time of Service: 10:00 PT Notes Visit Reasons: Right Public Rami FRX,UTI Inpatient Physical Therapy Treatment Note [facility] Date: 01/14/2021 PRECAUTIONS:WBAT on Right LE SUBJECTIVE: Still very painful to move due to pelvic fx. Wants a hospital bed when she returns home. OBJECTIVE: PAIN: Pain with bed mobility with changing positions and with ambulation BED MOBILITY/TRANSFERS Supine-sit: I with HOB at 30 degrees Sit-supine: I Sit-stand: SBA Stand-sit: SBA GAIT Assistive Device: FWW Weight bearing: AT on right Assist: CGA Distance: 80ft THEREX: See flow sheet STAIRS: Refused stairs today. ASSESSMENT: Tolerated fair, but still very sore with mobility. PLAN: Continue with strengthening and mobility training for improved ADL function. TREATMENT CODE/TIME: 49021 and 74585, 10:00 to 10:30 (30')
--- NOTE | 2021-01-14 13:25 | CMDISCH_ITS ---
- If Service Date Differs Date of service: 01/14/21 Time of Service: 13:25 LACE Index Scoring Tool - Questions: Length of Stay (in days): 2 Acuity (Admit via E.D.?): Yes Comorbidities: Cerebrovascular Disease E.D. Visits: 1 - Answers: Total Score: 7 Risk of Readmission: Low Risk Care Management Discharge Reason for Hospitalization: 70 year old female admitted to [facility] on for Right Pubic Rami Fracture, UTI Discharge Plan: Per PT, Keturah declined to participate in physical therapy this afternoon. Discharge home with new home health RN/PT/OT and transport with daughter Freida. Keturah will follow discharge plan which includes follow u p with community providers. Patient/Family Education Needs: Review discharge instructions, limitations and plan of care. ask me three. Services Needed at Discharge: Home Health Care Services, Occupational Therapy, Physical Therapy
--- NOTE | 2021-01-14 14:11 | PDOC.HHF2F ---
Home Health Certification Home Health Certification: 1. Encounter Date and Reason I certify that Keturah Kendall was seen by Allie Manning on 01/14/21 and that I had a [id number] encounter with this patient that meets the physician face to face encounter requirements. 2. Clinical Findings Supporting Skilled Need and Homebound Status I certify that home health services are medically necessary, include either intermittent half-way and/or physical/speech therapy, and that this patient is homebound in that absences from the home require considerable and taxing effort and are infrequent or of short duration, or are attributable to the need to receive medical care. [X] (a) Attached documentation from encounter provides clinical findings supporting skilled need and homebound status (including what assistance patient requires to leave the home). The encounter with the patient was in whole, or in part, for the following medical condition, which is the primary reason for home health care: Right Public Rami fracture,UTI Senior Living: routine nursing evaluation Physical and occupational Therapy: routine evaluation and management Homebound: patient unable to safely leave the house unassisted d/t pain, activity intolerance. 3. Certification and Authentication I certify that I composed the above information based on my clinical judgment relating to this patient's medical condition and, if applicable, clinical findings communicated to me by the NPP or inpatient physician who performed the Home Health Referral. All further orders will be obtained through Mary Barker(Community Based Physician - PCP)
--- NOTE | 2021-01-14 18:52 | PT.INDS ---
Date of service: 01/18/21 Time of Service: 12:33 PT Notes Visit Reasons: Right Public Rami FRX,UTI Physical Therapy Inpatient Discharge Summary Date: 01/18/2021 Dates of service: 01/13/2021 through 01/14/2021 This is a clinical summary of care provided for the duration of dates listed above. No charge was made in the completion of this documentation. Referring Doctor: Xu Wagner MD PT Orders: PT CONSULT: Limited ability Precautions: Fall. Standard. WBAT on right LE. Patient Profile/Admitting Diagnosis: Keturah is a 70-year-old female who presented to the ED on 01/12/2021 due to a mechanical fall on Tuesday evening (2 days prior to admission). Patient is diagnosed with urinary tract infection, post pelvic fracture, and EtOH abuse. PMHX: Medical History (Updated 01/12/21 @ 17:55 by Xu Wagner) Acute alcoholic pancreatitis Alcohol withdrawal Alcoholic cardiomyopathy Alcoholism Fracture of left forearm Major depression, chronic TIA (transient ischemic attack) Surgical History (Updated 01/12/21 @ 17:41 by Xu Wagner) H/O uterine prolapse History of carpal tunnel release History of cystopexy History of umbilical hernia repair Social History/Home Situation: Lives alone in a private home with 4 steps to enter with rails on both sides. Independent with all aspects of ADLs prior to admission without the need for an assistive ambulatory device. Has worked as a junior paralegal for several years. Equipment Owned/DME: None Subjective: NT. See most recent OBSERVATION ASSISTANT notes. Objective: General Observation: NT. See most recent OBSERVATION ASSISTANT notes. Mental Status: NT. See most recent OBSERVATION ASSISTANT notes. Pain: NT. See most recent OBSERVATION ASSISTANT notes. ROM: Right Upper Extremity: Shoulder Flexion WFL. Shoulder abduction WFL. Elbow flexion WFL. Wrist flexion WFL. Functional opening and closing of hand WFL. Left Upper Extremity: Shoulder Flexion WFL. Shoulder abduction WFL. Elbow flexion WFL. Wrist flexion WFL. Functional opening and closing of hand WFL. Right Lower Extremity: Hip flexion bend further at the hip while at edge of bed due to pain level. Hip abduction-- able to slide R LE slowly to the edge of bed but with report of pain. Knee flexion WFL. Ankle dorsiflexion to neutral only. Ankle plantarflexion WFL. Left Lower Extremity: Hip flexion WFL. Hip abduction WFL. Knee flexion WFL. Ankle dorsiflexion WFL. Ankle plantarflexion WFL. Strength: Right Upper Extremity: Shoulder flexors 3/5. Shoulder abductors 3/5. Elbow flexors 3/5. Elbow extensors 3/5. Auto Electrical Technician strong. Left Upper Extremity: Shoulder flexors 3/5. Shoulder abductors 3/5. Elbow flexors 3/5. Elbow extensors 3/5. Auto Electrical Technician strong. Right Lower Extremity: Hip flexors 3-/5. Hip abductors 3-/5. Knee flexors 4-/5. Knee extensors 3-/5. Ankle dorsiflexors 3-/5. Ankle plantarflexors 4-/5. Left Lower Extremity: Hip flexors 4-/5. Hip abductors 4-/5. Knee flexors 4-/5. Knee extensors 4-/5. Ankle dorsiflexors 4-/5. Ankle plantarflexors 4-/5. Bed Mobility/Transfers: Supine to sit independent Sit to stand with standby assist Stand to sit with standby assist Bed to reclining chair standby assist Gait: Instructed patient with level surface ambulation of 80 feet requiring contact-guard assist assist and wheelchair follow. Christiana decreased. Step height decreased. Step length decreased. Balance: Static Sitting: Normal Dynamic Sitting: Good Static Standing: Fair Dynamic Standing: Fair Assessment: Keturah demonstrates significant functional mobility requiring the use of a front wheeled walker for mobility performance for safety. Patient presents with clinical signs and symptoms consistent with current/admitting diagnoses that have resulted to mobility limitations, gait instability, generalized weakness, and overall ADL decline as demonstrated by the following impairment level findings: 1. Decreased strength to right LE major muscle groups 2. Impaired standing balance 3. Impaired activity tolerance 4. Limitation of joint range of motion in right hip 5. Shortness of breath 6. Pain in right hip and pelvis Impairments are contributing to the following functional limitations: 1. Decline in transfer skills 2. Difficulty with ambulation without assistive device and physical assistance 3. Increased completion time for mobility ADL performance 4. Increased risk for falls 5. Difficulty with managing steps alone safely Goals: Goals X1 week 1. Supine-Sit independent MET 2. Sit-Supine independent MET 3. Sit-Stand independent NOT MET 4. Stand-Sit independent with front wheel walker NOT MET 5. Bed-Chair independent with front wheeled walker NOT MET 6. Chair-Bed independent with front wheeled walker NOT MET 7. Independent gait on level surface with use of front wheel walker 500 for at least feet without report of pain nor dyspnea NOT MET 8. Independent stair negotiation while holding onto B rails for at least 4 steps without report of pain nor dyspnea NOT MET 9. Independent with home exercise program NOT MET 10. Good static and dynamic standing balance/tolerance NOT MET DISCHARGE RECOMMENDATIONS: Patient will benefit from home health PT services in order to progress mobility level using least restrictive assistive ambulatory device, assess home safety, identify additional equipment needs, and establish a functional maintenance program that will increase ability of patient to remain at home. TREATMENT CODE/TIME: IN Thank you for the opportunity to participate in the care of this patient. Marjorie Duckworth PT, DPT, CLT [facility] [place], [place]
== END 2021-01-14 15:53 | disposition home health service (06) ==
LOC: ER 15:29 → MS 16:56
PROVIDERS: Admitting Provider Internal Medicine; Emergency Provider Physician Assistant; PCP Family Medicine; Visit Provider Internal Medicine
DX: S32.591A Other specified fracture of right pubis, initial encounter for closed fracture; W01.190A Fall on same level from slipping, tripping and stumbling with subsequent striking against furniture, initial encounter; F32.9 Major depressive disorder, single episode, unspecified; D64.9 Anemia, unspecified; N30.00 Acute cystitis without hematuria; Z66 Do not resuscitate; J44.9 Chronic obstructive pulmonary disease, unspecified; I42.6 Alcoholic cardiomyopathy; I10 Essential (primary) hypertension; Z86.73 Personal history of transient ischemic attack (TIA), and cerebral infarction without residual deficits; R27.0 Ataxia, unspecified; R00.0 Tachycardia, unspecified; R74.01 Elevation of levels of liver transaminase levels; Z87.891 Personal history of nicotine dependence; F10.20 Alcohol dependence, uncomplicated; Z20.822 Contact with and (suspected) exposure to COVID-19
CPT/HCPCS: 36410; 36415; 51702; 80048; 80053; 82550; 84145; 87040; 87077; 87635; 93005; 96361; 96365; 96375; 97110; 97162; 97530; 99285; J1650; 70450; 71045; 73502; 80320; 81003; 81015; 82728; 83540; 83550; 83605; 83735; 84443; 84484; 85025; 85610; 85730; 87086; 87186; 93010; 99217; 99219; 99224; J0696; J1885; J2270

== ENCOUNTER 2021-03-05 19:44 | Outpatient (REF) | payer MEDICARE, OTHER, SELFPAY ==
[2021-03-05 19:51] LABS: Calculated LDL 206 mg/dL (<100); Cholesterol 289 mg/dL (<200); HDL Cholesterol 54 mg/dL (40-60); Triglyceride 148 mg/dL (<150)
[2021-03-05 20:53] LABS: Vitamin D 25 Total 25.9 ng/mL (30-100)
== END 2021-03-05 19:45 | disposition home or self-care (01) ==
LOC: NCHCN 19:44
PROVIDERS: PCP Family Medicine; Visit Provider Nurse Practitioner Family
DX: E78.5 Hyperlipidemia, unspecified (principal); R63.4 Abnormal weight loss; S32.591D Other specified fracture of right pubis, subsequent encounter for fracture with routine healing
CPT/HCPCS: 80061; 82306

== ENCOUNTER 2021-04-03 12:32 | Outpatient (REF) | payer MEDICARE, OTHER, SELFPAY ==
[2021-04-03 14:45] LABS: HCT 40.3 % (36.0-46.0); HGB 12.8 g/dL (11.2-15.7); MCH 31.1 pg (27.0-33.0); MCHC 31.8 % (32.0-36.0); MCV 97.8 fL (80-95); MPV 9.7 fL (8.0-11.0); Platelet Count 384 10^3/uL (130-400); RBC 4.12 10^6/uL (3.93-5.22); RDW 11.9 % (11.7-14.6); WBC 5.65 10^3/uL (4.4-10.8)
[2021-04-03 15:28] LABS: ALT 23 U/L (14-59); AST 26 U/L (15-37); Alkaline Phosphatase 92 U/L (46-116); Anion Gap 10.9 mmol/L (3-11); BUN 10 mg/dL (7-18); Bilirubin, Total 0.5 mg/dL (0.2-1.0); CO2 26.1 mmol/L (21.0-32.0); CREATININE 0.6 mg/dL (0.55-1.02); Calcium 9.8 mg/dL (8.5-10.1); Chloride 103 mmol/L (98-107); Creatine Kinase 43 U/L (26-192); Glucose 114 mg/dL (74-106); Sodium 140 mmol/L (136-145); Total Protein 7.2 g/dL (6.4-8.2)
== END 2021-04-03 12:33 | disposition home or self-care (01) ==
LOC: NCHCN 12:32
PROVIDERS: PCP Family Medicine; Visit Provider Nurse Practitioner Family
DX: E78.5 Hyperlipidemia, unspecified (principal); R73.03 Prediabetes
CPT/HCPCS: 80053; 82550; 85027

== ENCOUNTER 2021-04-15 01:09 | Outpatient (CLI) | payer MEDICARE, OTHER, SELFPAY ==
--- NOTE | 2021-04-15 | DI.US_ITS ---
Exam(s) US HERNIA EXAM: US HERNIA CLINICAL HISTORY: ENLARGED,TENDER RT INGUINAL MASS,? LYMPH NODE.S/P FX,ASSESS,R22.9. TECHNIQUE: Ultrasound was performed using standard protocol. COMPARISON: CR,XR XR HIP RT COMPLETE AP PELVIS from 01/12/2021 CR,XR XR HIP RT COMPLETE AP PELVIS from 01/12/2021 FINDINGS: Sonographic assessment utilizing grayscale and color Doppler imaging was performed and targeted to th e area of clinical concern. Review of the x-ray of the right hip and pelvis shows a displaced fracture involving the right superi or pubic ramus and a nondisplaced fracture involving the right inferior pubic ramus. Sonography of t his area shows a prominent hyperechoic curvilinear ???mass??? with posterior shadowing. The sonograp hic appearance suggests bone. This may reflect the healing pubic bone fracture. IMPRESSION: Sonographic findings which appear to correspond to the right pubic bone fracture. An x-ray of the pe lvis should be considered to assess healing status. DATA REPOSITORY:
== END 2021-04-15 01:29 ==
PROVIDERS: PCP Family Medicine; Visit Provider Nurse Practitioner Family
DX: R22.2 Localized swelling, mass and lump, trunk (principal); S32.591D Other specified fracture of right pubis, subsequent encounter for fracture with routine healing; X58.XXXD Exposure to other specified factors, subsequent encounter
CPT/HCPCS: 76857

== ENCOUNTER 2021-04-21 01:49 | Outpatient (CLI) | payer MEDICARE, OTHER, SELFPAY ==
--- NOTE | 2021-04-21 | DI.RAD_ITS ---
Exam(s) XR HIP RT COMPLETE AP PELVIS EXAM: XR HIP RT COMPLETE AP PELVIS CLINICAL HISTORY: FRACTTURE RT PUBIS WITH HEALING, S32.591D, SKIN NODULE, R22.9. TECHNIQUE: 2D digital imaging was performed of the right hip. Two images were obtained. AP pelvis a nd lateral right hip views were obtained. COMPARISON: CR,XR XR HIP RT COMPLETE AP PELVIS from 01/12/2021 FINDINGS: BONES: There are healing right pubic bone fractures. Callus formation is developed around both fract ure sites. There has been no change in alignment of the fractures. No new fracture or dislocation i s seen. No bony destructive lesion is seen. JOINTS: No dislocation present. SOFT TISSUE: Atherosclerosis is present. IMPRESSION: Healing right pubic bone fractures. Delete DATA REPOSITORY: RADIATION DOSE DELIVERED:
== END 2021-04-21 02:09 ==
PROVIDERS: PCP Family Medicine; Visit Provider Nurse Practitioner Family
DX: S32.591D Other specified fracture of right pubis, subsequent encounter for fracture with routine healing; X58.XXXD Exposure to other specified factors, subsequent encounter
CPT/HCPCS: 73502

== ENCOUNTER 2021-07-17 15:50 | Outpatient (REF) | payer MEDICARE, OTHER, SELFPAY ==
[2021-07-17 15:14] LABS: ALT 58 U/L (14-59); AST 41 U/L (15-37); Albumin 4.6 g/dL (3.4-5.0); Alkaline Phosphatase 70 U/L (46-116); Anion Gap 10.8 mmol/L (3-11); BUN 9 mg/dL (7-18); Bilirubin, Total 0.8 mg/dL (0.2-1.0); CO2 27.2 mmol/L (21.0-32.0); CREATININE 0.6 mg/dL (0.55-1.02); Calculated LDL 88 mg/dL (<100); Chloride 103 mmol/L (98-107); Cholesterol 176 mg/dL (<200); Glucose 90 mg/dL (74-106); HDL Cholesterol 61 mg/dL (40-60); Potassium 3.5 mmol/L (3.5-5.1); Sodium 141 mmol/L (136-145); Total Protein 7.7 g/dL (6.4-8.2); Triglyceride 136 mg/dL (<150)
[2021-07-17 15:30] LABS: Calcium 10.1 mg/dL (8.5-10.1)
== END 2021-07-17 15:51 | disposition home or self-care (01) ==
LOC: NCHCN 15:50
PROVIDERS: PCP Family Medicine; Visit Provider Family Medicine
DX: E78.5 Hyperlipidemia, unspecified (principal); I10 Essential (primary) hypertension; R73.03 Prediabetes; R59.1 Generalized enlarged lymph nodes
CPT/HCPCS: 80053; 80061; 82306

== ENCOUNTER 2022-05-13 11:51 | Outpatient (REF) | payer MEDICARE, OTHER, SELFPAY ==
[2022-05-13 15:19] LABS: HCT 40.7 % (36.0-46.0); HGB 13.4 g/dL (11.2-15.7); MCH 32.1 pg (27.0-33.0); MCHC 32.9 % (32.0-36.0); MCV 98 fL (80-95); MPV 10.4 fL (8.0-11.0); Platelet Count 237 10^3/uL (130-400); RBC 4.17 10^6/uL (3.93-5.22); RDW 12.6 % (11.7-14.6); RDW-SD 44.9 fL; WBC 4.25 10^3/uL (4.4-10.8)
[2022-05-13 16:20] LABS: ALT 33 U/L (14-59); AST 30 U/L (15-37); Albumin 4.4 g/dL (3.4-5.0); Alkaline Phosphatase 59 U/L (46-116); Anion Gap 12.3 mmol/L (3-11); BUN 8 mg/dL (7-18); Bilirubin, Total 0.7 mg/dL (0.2-1.0); CO2 27.7 mmol/L (21.0-32.0); CREATININE 0.7 mg/dL (0.55-1.02); Calcium 9.9 mg/dL (8.5-10.1); Calculated LDL 73 mg/dL (<100); Chloride 101 mmol/L (98-107); Cholesterol 205 mg/dL (<200); Estimated GFR 92.98 (mL/min/1.73m2); Glucose 110 mg/dL (74-106); HDL Cholesterol 110 mg/dL (40-60); Potassium 3.2 mmol/L (3.5-5.1); Sodium 141 mmol/L (136-145); Total Protein 7.9 g/dL (6.4-8.2); Triglyceride 110 mg/dL (<150)
[2022-05-13 16:49] LABS: Hemoglobin A1C 5.1 % (<5.7)
[2022-05-13 18:17] LABS: Creatine Kinase 68 U/L (26-192)
== END 2022-05-13 11:52 | disposition home or self-care (01) ==
LOC: NCHCN 11:51
PROVIDERS: PCP Family Medicine; Visit Provider Family Medicine
DX: E78.5 Hyperlipidemia, unspecified (principal); R73.03 Prediabetes; I10 Essential (primary) hypertension
CPT/HCPCS: 80053; 80061; 82550; 85027; 83036

== ENCOUNTER 2023-09-15 14:06 | Outpatient (REF) | payer MEDICARE, OTHER, SELFPAY ==
[2023-09-15 15:17] LABS: ALT 54 U/L (14-59); AST 43 U/L (15-37); Albumin 4.8 g/dL (3.4-5.0); Alkaline Phosphatase 52 U/L (46-116); BUN 10 mg/dL (7-18); Bilirubin, Total 0.6 mg/dL (0.2-1.0); CREATININE 0.7 mg/dL (0.55-1.02); Calcium 10.1 mg/dL (8.5-10.1); Chloride 106 mmol/L (98-107); Estimated GFR 92.41 (mL/min/1.73m2); Glucose 81 mg/dL (74-106); Magnesium 1.8 mg/dL (1.8-2.4); Potassium 4.8 mmol/L (3.5-5.1); Sodium 146 mmol/L (136-145); Total Protein 7.7 g/dL (6.4-8.2)
== END 2023-09-15 14:07 | disposition home or self-care (01) ==
LOC: NCHCN 14:06
PROVIDERS: PCP Family Medicine; Visit Provider Family Medicine
DX: I10 Essential (primary) hypertension (principal); R25.2 Cramp and spasm
CPT/HCPCS: 80053; 83735

== ENCOUNTER 2025-03-21 13:52 | Outpatient (REF) | payer MEDICARE, SELFPAY ==
[2025-03-21 18:15] LABS: Magnesium 1.9 mg/dL (1.6-2.6)
[2025-03-21 18:16] LABS: ALT 14 U/L (10-49); AST 21 U/L (<34); Albumin 5.0 g/dL (3.4-5.0); Alkaline Phosphatase 68 U/L (46-116); Anion Gap 10.7 mmol/L (3-11); BUN 18 mg/dL (9-23); Bilirubin, Total 0.40 mg/dL (0.2-1.2); CO2 28.3 mmol/L (20.0-31.0); Calcium 10.6 mg/dL (8.3-10.6); Chloride 103 mmol/L (98-107); Creatine Kinase 60 U/L (34-145); Glucose 105 mg/dL (74-106); Potassium 4.6 mmol/L (3.5-5.1); Sodium 142 mmol/L (136-145); Total Protein 7.4 g/dL (5.7-8.2)
== END 2025-03-21 13:53 | disposition home or self-care (01) ==
LOC: NCHCN 13:52
PROVIDERS: PCP Family Medicine; Visit Provider Family Medicine
DX: I10 Essential (primary) hypertension (principal); R25.2 Cramp and spasm
CPT/HCPCS: 80053; 82550; 83735